=== PATIENT | male | born 1960 | race American Indian/Alaskan Native ===

== ENCOUNTER 2016-08-22 11:10 | Emergency (ER) | payer MEDICAID, OTHER ==
[2016-08-22 11:15] VITALS: BP 121/87; PULSE 89; RESP 20; TEMP 98; O2SAT 98; BMI 29.7
--- NOTE | 2016-08-22 11:51 | C.PDOC ---
History Of Present Illness 55 y/o male with Hx of HTN and Headaches presents to ED with complaints of sharp and shooting pain on top of his head. Patient reports pain to be intermittent but constant in between hours. At ED patient is asymptomatic but states pain comes and goes. Patient denies fever, chills, vision changes, dizziness, n/v/d or any other complaints at this time. Time Seen by Provider: 08/22/16 11:27 Chief Complaint (Nursing): Headache History Per: Patient History/Exam Limitations: no limitations Onset/Duration Of Symptoms: Hrs Current Symptoms Are (Timing): Still Present Quality: Sharp Associated Symptoms: denies: Blurred Vision Past Medical History Reviewed: Historical Data, Nursing Documentation, Vital Signs Vital Signs: Last Vital Signs Temp 98.0 F 08/22/16 11:15 Pulse 89 08/22/16 11:15 Resp 20 08/22/16 11:15 BP 121/87 08/22/16 11:15 Pulse Ox 98 08/22/16 11:55 - Medical History PMH: HTN, Hypercholesterolemia Family History: States: No Known Family Hx - Social History Hx Alcohol Use: No Hx Substance Use: No - Immunization History Hx Tetanus Toxoid Vaccination: No Hx Influenza Vaccination: No Hx Pneumococcal Vaccination: No Review Of Systems Except As Marked, All Systems Reviewed And Found Negative. Constitutional: Negative for: Fever, Chills Eyes: Negative for: Vision Change Gastrointestinal: Negative for: Nausea, Vomiting, Diarrhea Neurological: Positive for: Headache. Negative for: Weakness, Dizziness Physical Exam - Physical Exam Appears: Non-toxic, No Acute Distress Skin: Normal Color, Warm Head: Atraumatic, Normacephalic Eye(s): bilateral: Normal Inspection, PERRL Oral Mucosa: Moist Neck: Normal ROM Cardiovascular: Rhythm Regular, No Murmur Respiratory: Normal Breath Sounds, No Rales, No Rhonchi, No Wheezing Gastrointestinal/Abdominal: Soft, No Tenderness, No Guarding, No Rebound Extremity: Normal ROM, Capillary Refill (<2 seconds) Neurological/Psych: Oriented x3, Normal Speech, Normal Cognition, Normal Motor, Normal Sensation ED Course And Treatment O2 Sat by Pulse Oximetry: 98 (RA) Pulse Ox Interpretation: Normal - CT Scan/US No standard instances Other Rad Studies (CT/US): Read By Radiologist, Radiology Report Reviewed CT/US Interpretation: FINDINGS: HEMORRHAGE: No acute parenchymal, subarachnoid or extra-axial the EAC rectus Dr. ziegler hemorrhage. BRAIN: No evidence of obvious parenchymal nor extra-axial mass or collection. Mild central volume loss. VENTRICLES: No obstructive hydrocephalus. CALVARIUM: There are no acute calvarial fractures. . PARANASAL SINUSES: Unremarkable as visualized. No significant inflammatory changes. MASTOID AIR CELLS: Unremarkable as visualized. No inflammatory changes. OTHER FINDINGS: None. IMPRESSION: No acute intracranial hemorrhage. Mild central volume loss. Progress Note: TREATED WITH MOTRIN 650 MG po. On re-evaluation feeling better, neuro intact, ambulating with steady gait Reassessment Condition: Improved Medical Decision Making Medical Decision Making: Plan: * CT head * Tylenol Disposition Counseled Patient/Family Regarding: Studies Performed, Diagnosis, Need For Followup, Rx Given - Disposition Disposition: HOME/ ROUTINE Disposition Time: 13:00 Condition: IMPROVED Prescriptions: Naproxen [Naprosyn] 1 tab PO BID PRN #25 tab PRN Reason: Pain Instructions: Acute Headache (ED) - POA Present On Arrival: None - Clinical Impression Clinical Impression: Headache - Scribe Statement The provider has reviewed the documentation as recorded by the Jeronimo Garcia All medical record entries made by the Jeronimo were at my direction and personally dictated by me. I have reviewed the chart and agree that the record accurately reflects my personal performance of the history, physical exam, medical decision making, and the department course for this patient. I have also personally directed, reviewed, and agree with the discharge instructions and disposition.
--- NOTE | 2016-08-22 12:33 | CT ---
PROCEDURE: CT HEAD WITHOUT CONTRAST. HISTORY: fall COMPARISON: None available. TECHNIQUE: Axial computed tomography images were obtained through the head/brain without intravenous contrast. Radiation dose: Total exam DLP = 1193.58 mGy-cm. This CT exam was performed using one or more of the following dose reduction techniques: Automated exposure control, adjustment of the mA and/or kV according to patient size, and/or use of iterative reconstruction technique. FINDINGS: HEMORRHAGE: No acute parenchymal, subarachnoid or extra-axial the EAC rectus Dr. el hemorrhage. BRAIN: No evidence of obvious parenchymal nor extra-axial mass or collection. Mild central volume loss. VENTRICLES: No obstructive hydrocephalus. CALVARIUM: There are no acute calvarial fractures. . PARANASAL SINUSES: Unremarkable as visualized. No significant inflammatory changes. MASTOID AIR CELLS: Unremarkable as visualized. No inflammatory changes. OTHER FINDINGS: None. IMPRESSION: No acute intracranial hemorrhage. Mild central volume loss.
== END 2016-08-22 13:24 | disposition home or self-care (01) ==
LOC: C.ER 11:10
DX: R51 Headache (principal)

== ENCOUNTER 2016-10-11 10:12 | Emergency (ER) | payer OTHER ==
[2016-10-11 10:12] VITALS: BMI 29.7
[2016-10-11] MEDS ORDERED: Sodium Chloride 0.9% 500 ML IV ONE (10:28)
--- NOTE | 2016-10-11 10:30 | C.PDOC ---
History Of Present Illness 55 yr old male presents to the ER with complaints of LLQ pain for the past 1 week. Patient reports history of similar symptoms, states he was told by his PMD it was a bacterial infection and was put on antibiotics. Patient states he is concerned it might be the same. Patient also reports of a colonoscopy 2 years ago with normal results. Patient denies fever, nausea, vomiting, diarrhea , constipation, dysuria or hematuria. Time Seen by Provider: 10/11/16 10:19 Chief Complaint (Nursing): Abdominal Pain History Per: Patient History/Exam Limitations: no limitations Onset/Duration Of Symptoms: Days (1 week) Past Medical History Reviewed: Historical Data, Nursing Documentation, Vital Signs Vital Signs: Last Vital Signs Temp 97.7 F 10/11/16 13:36 Pulse 80 10/11/16 13:36 Resp 18 10/11/16 13:36 BP 130/90 10/11/16 13:36 Pulse Ox 97 10/11/16 13:55 - Medical History PMH: HTN, Hypercholesterolemia Family History: States: No Known Family Hx - Social History Hx Alcohol Use: Yes Hx Substance Use: No - Immunization History Hx Tetanus Toxoid Vaccination: No Hx Influenza Vaccination: No Hx Pneumococcal Vaccination: No Review Of Systems Except As Marked, All Systems Reviewed And Found Negative. Constitutional: Negative for: Fever Gastrointestinal: Positive for: Abdominal Pain (LLQ pain ). Negative for: Nausea, Vomiting, Diarrhea, Constipation Genitourinary: Negative for: Dysuria, Hematuria Physical Exam - Physical Exam Appears: Non-toxic, No Acute Distress Skin: Warm, Dry, No Rash Head: Atraumatic, Normacephalic Oral Mucosa: Moist Chest: Symmetrical, No Tenderness Cardiovascular: Rhythm Regular, No Murmur Respiratory: Normal Breath Sounds, No Rales, No Rhonchi, No Wheezing Gastrointestinal/Abdominal: Normal Exam, Soft, No Tenderness, No Guarding, No Rebound Extremity: Normal ROM, No Swelling Neurological/Psych: Oriented x3, Normal Speech, Normal Motor ED Course And Treatment - Laboratory Results Result Diagrams: 10/11/16 10:42 10/11/16 10:42 O2 Sat by Pulse Oximetry: 97 (RA ) Pulse Ox Interpretation: Normal - CT Scan/US CT- Abd & Pelvis Other Rad Studies (CT/US): Read By Radiologist, Radiology Report Reviewed CT/US Interpretation: PROCEDURE: CT Abdomen and Pelvis with contrast. HISTORY : LLQ pain. COMPARISON: None. TECHNIQUE: Contrast dose: Visipaque 320, 100 cc. Radiation dose: Total exam DLP = 536 mGy-cm. This CT exam was performed using one or more of the following dose reduction techniques: Automated exposure control, adjustment of the mA and/or kV according to patient size, and/ or use of iterative reconstruction technique. FINDINGS: LOWER THORAX: Unremarkable. LIVER: Mild diffuse fatty infiltration liver is identified with the liver otherwise unremarkable. No definite intrahepatic biliary dilatation is demonstrated. GALLBLADDER AND BILE DUCTS: Unremarkable. PANCREAS: Unremarkable. No gross lesion or ductal dilatation. SPLEEN: Unremarkable. ADRENALS: Unremarkable. No mass. KIDNEYS AND URETERS: 1.1 cm cyst seen at the midpole right kidney posteriorly with bilateral kidneys otherwise unremarkable appearing. VASCULATURE: Unremarkable. No aortic aneurysm. BOWEL : Moderate sigmoid diverticular changes are identified which appear nonacute. No reactive pericolic changes are identified and there is no definite abscess or definitive free intraperitoneal gas evident at this time. [id number]-[id number] fecal loading is seen in various large-bowel segments. No obstruction. No gross mural thickening. APPENDIX: The appendix is retroperitoneal but otherwise unremarkable. No acute inflammatory changes seen related. PERITONEUM: Unremarkable. No free fluid. No free air. LYMPH NODES: Unremarkable. No enlarged lymph nodes. BLADDER: Unremarkable. REPRODUCTIVE: Enlarged prostate gland is identified. BONES: Minimal grade 1 spondylolisthesis L4-5. OTHER FINDINGS: A tiny umbilical hernia is identified containing only. IMPRESSION: 1. Moderate sigmoid diverticulosis identified without diverticulitis at this time. 2. Mild diffuse fatty infiltration liver. 3. Small cyst right kidney. 4. No obstructive uropathy bilaterally. Medical Decision Making Medical Decision Making: PLAN: * CT - Abd & Pelvis * CBC * CMP * Urinalysis * Toradol IVP * Sodium Chloride IV Patient is tolerating po, afebrile and well appearing. He reports that he wants to go home and will return with any worsening symptoms. Disposition - Disposition Disposition: HOME/ ROUTINE Disposition Time: 13:56 Condition: GOOD Additional Instructions: Return to ED if condition worsens. Follow-up with PMD within 2 days. Take full course of antibiotics. Prescriptions: Ciprofloxacin HCl [Cipro] 500 mg PO BID #20 tablet Metronidazole [Flagyl] 500 mg PO TID #30 tablet Instructions: Diverticulitis (ED) Forms: [employer] (Armenian) - Clinical Impression Clinical Impression: Diverticulitis - Scribe Statement The provider has reviewed the documentation as recorded by the Siennaibrachelle Ac Provider Attestation: All medical record entries made by the Siennaibrachelle were at my direction and personally dictated by me. I have reviewed the chart and agree that the record accurately reflects my personal performance of the history, physical exam, medical decision making, and the department course for this patient. I have also personally directed, reviewed, and agree with the discharge instructions and disposition.
[2016-10-11] MEDS ORDERED: Sodium Chloride 0.9% 1,000 ML ONE (10:39)
[2016-10-11 10:57] LABS: URINE BILIRUBIN NEGATIVE (NEGATIVE); URINE BLOOD NEGATIVE (NEGATIVE); URINE COLOR Straw (YELLOW); URINE GLUCOSE (UA) NORMAL (Normal); URINE KETONE NEGATIVE (NEGATIVE); URINE LEUKOCYTE ESTERASE NEG Leu/uL (Negative); URINE PROTEIN NEGATIVE (NEGATIVE); URINE UROBILINOGEN NORMAL mg/dL (0.2-1.0)
[2016-10-11 11:01] LABS: CHLORIDE 97 mmol/L (98-107); SODIUM 138 mmol/L (132-148)
[2016-10-11 11:02] LABS: BASO # 0.1 K/uL (0.0-0.2); BASO % 1.2 % (0.0-2.0); EOS # 0.1 K/uL (0.0-0.7); EOS % 1.1 % (0.0-4.0); HEMATOCRIT 44.7 % (35.0-51.0); LYMPH # 2.4 K/uL (1.0-4.3); LYMPH % 49.9 % (20.0-40.0); MEAN CELL VOLUME 90.1 fL (80.0-94.0); MEAN CORPUSCULAR HEMOGLOBIN 29.6 pg (27.0-31.0); MEAN CORPUSCULAR HGB CONC 32.8 g/dL (33.0-37.0); MEAN PLATELET VOLUME 8.9 fL (7.2-11.7); MONO # 0.5 K/uL (0.0-0.8); MONO % 11.4 % (0.0-10.0); NRBC % 0.2 % (0.0-2.0); RED CELL DISTRIBUTION WIDTH 13.5 % (11.5-14.5); WHITE BLOOD COUNT 4.7 K/uL (4.8-10.8)
[2016-10-11 11:04] LABS: ALB/GLOB RATIO 1.2 (1.0-2.1); ALKALINE PHOSPHATASE 36 U/L (38-126); ALT/SGPT 45 U/L (21-72); AST/SGOT 45 U/L (17-59); BILIRUBIN,TOTAL 1.5 mg/dL (0.2-1.3); BLOOD UREA NITROGEN 10 mg/dL (9-20); CARBON DIOXIDE 28 mmol/L (22-30); GFR AFRICAN-AMERICAN > 60; GLUCOSE,RANDOM 80 mg/dL (75-110); TOTAL PROTEIN 8.3 g/dL (6.3-8.3)
[2016-10-11 11:05] LABS: CALCIUM 9.8 mg/dl (8.6-10.4)
[2016-10-11 11:49] VITALS: RESP 18
[2016-10-11] MEDS ORDERED: Iohexol 350mg/ml 100 ML ONE (12:02)
[2016-10-11 12:32] VITALS: O2SAT 97
--- NOTE | 2016-10-11 12:55 | CT ---
PROCEDURE: CT Abdomen and Pelvis with contrast HISTORY: LLQ pain COMPARISON: None. TECHNIQUE: Contrast dose: Visipaque 320, 100 cc Radiation dose: Total exam DLP = 536 mGy-cm. This CT exam was performed using one or more of the following dose reduction techniques: Automated exposure control, adjustment of the mA and/or kV according to patient size, and/or use of iterative reconstruction technique. FINDINGS: LOWER THORAX: Unremarkable. LIVER: Mild diffuse fatty infiltration liver is identified with the liver otherwise unremarkable. No definite intrahepatic biliary dilatation is demonstrated. GALLBLADDER AND BILE DUCTS: Unremarkable. PANCREAS: Unremarkable. No gross lesion or ductal dilatation. SPLEEN: Unremarkable. ADRENALS: Unremarkable. No mass. KIDNEYS AND URETERS: 1.1 cm cyst seen at the midpole right kidney posteriorly with bilateral kidneys otherwise unremarkable appearing. VASCULATURE: Unremarkable. No aortic aneurysm. BOWEL: Moderate sigmoid diverticular changes are identified which appear nonacute. No reactive pericolic changes are identified and there is no definite abscess or definitive free intraperitoneal gas evident at this time. Irue-iz-evqhhlgv fecal loading is seen in various large-bowel segments. No obstruction. No gross mural thickening. APPENDIX: The appendix is retroperitoneal but otherwise unremarkable. No acute inflammatory changes seen related. PERITONEUM: Unremarkable. No free fluid. No free air. LYMPH NODES: Unremarkable. No enlarged lymph nodes. BLADDER: Unremarkable. REPRODUCTIVE: Enlarged prostate gland is identified BONES: Minimal grade 1 spondylolisthesis L4-5. OTHER FINDINGS: A tiny umbilical hernia is identified containing only. IMPRESSION: 1. Moderate sigmoid diverticulosis identified without diverticulitis at this time. 2. Mild diffuse fatty infiltration liver. 3. Small cyst right kidney. 4. No obstructive uropathy bilaterally.
[2016-10-11 13:36] VITALS: BP 130/90; PULSE 80; TEMP 97.7
== END 2016-10-11 13:35 | disposition home or self-care (01) ==
LOC: C.ER 10:12
DX: K57.32 Diverticulitis of large intestine without perforation or abscess without bleeding (principal)
CPT/HCPCS: 74177; 80053; 81001; 83690; 85025; 96361; 96374; 99284; J1885; J7040; Q9967

== ENCOUNTER 2016-11-10 11:28 | Emergency (ER) | payer OTHER ==
[2016-11-10 11:29] VITALS: BMI 29.7
[2016-11-10 11:44] VITALS: TEMP 97.7
[2016-11-10 12:27] LABS: RBC URINE 1 /hpf (0-3); URINE BILIRUBIN NEGATIVE (NEGATIVE); URINE BLOOD NEGATIVE (NEGATIVE); URINE COLOR Yellow (YELLOW); URINE GLUCOSE (UA) NORMAL (Normal); URINE KETONE NEGATIVE (NEGATIVE); URINE LEUKOCYTE ESTERASE NEG Leu/uL (Negative); URINE PROTEIN NEGATIVE (NEGATIVE); URINE UROBILINOGEN NORMAL mg/dL (0.2-1.0); WBC URINE 1 /hpf (0-5)
--- NOTE | 2016-11-10 12:34 | C.PDOC ---
History Of Present Illness 56 year old male, with history of intermittent lower back pain, presents to the ED for evaluation of left-sided lower back pain which has been gradually worsening for the past 5 days. Patient describes his pain as constant, aching, severe in nature and notes it radiates to his left thigh. He states the pain is worse with movement and standing. Patient states his symptoms began after he received a steroid injection in his lower back. He denies recent trauma/injury, fever, chills, abdominal pain, dysuria, hematuria, urinary frequency, urinary/ bowel incontinence, or saddle anesthesia. Ambulate to ED for evaluation, appears in pain. Time Seen by Provider: 11/10/16 11:54 Chief Complaint (Nursing): Back Pain History Per: Patient History/Exam Limitations: no limitations Onset/Duration Of Symptoms: Days (5), Gradual Current Symptoms Are (Timing): Still Present Quality Of Discomfort: Aching, "Pain" Severity: Severe Previous Symptoms: Back Pain Associated Symptoms: denies: Incontinence, New Weakness, New Numbness Exacerbating Factor(s): Movement, Standing Additional History Per: Patient Past Medical History Reviewed: Historical Data, Nursing Documentation, Vital Signs Vital Signs: Last Vital Signs Temp 97.7 F 11/10/16 11:42 Pulse 70 11/10/16 13:02 Resp 16 11/10/16 13:02 BP 111/68 11/10/16 13:02 Pulse Ox 98 11/10/16 13:02 - Medical History PMH: HTN, Hypercholesterolemia Surgical History: No Surg Hx Family History: States: Unknown Family Hx - Social History Hx Alcohol Use: Yes Hx Substance Use: No - Immunization History Hx Tetanus Toxoid Vaccination: No Hx Influenza Vaccination: No Hx Pneumococcal Vaccination: No Review Of Systems Constitutional: Negative for: Fever, Chills Gastrointestinal: Negative for: Abdominal Pain Genitourinary: Negative for: Dysuria, Frequency, Incontinence, Hematuria Musculoskeletal: Positive for: Back Pain (left-sided, lower), Other (left thigh pain ) Neurological: Negative for: Weakness, Numbness Physical Exam - Physical Exam Appears: Non-toxic, No Acute Distress Skin: Normal Color, Warm, Dry, No Rash Eye(s): bilateral: PERRL Nose: No Flaring Oral Mucosa: Moist Throat: No Erythema Neck: Supple Gastrointestinal/Abdominal: Soft, No Tenderness, No Guarding, No Rebound Back: Muscle Spasm (moderate), Paraspinal Tenderness (left-sided, lumbar ), Straight Leg Raising (right lower extremity: +50 degrees; left lower extremity: +30 degrees) Extremity: Normal ROM, No Tenderness, No Calf Tenderness, Capillary Refill ( less than 2 seconds ), No Swelling Neurological/Psych: Oriented x3, Normal Speech, Normal Cognition, Normal Motor, Normal Sensation, Normal Reflexes Gait: Steady ED Course And Treatment O2 Sat by Pulse Oximetry: 100 (on RA) Pulse Ox Interpretation: Normal Progress Note: UA ordered and reviewed. Toradol IM, Ultram PO, and Valium PO administered. On re-evaluation, pt reports mild improvement in lower back pain. AFebrile, hemodynamicaly stable. Non-toxic. AMbulatory in ED with stable gait. ENT: no acute findings. LUngs: CTA B/L, BS equal B/L. ABd: benign, (-) guarding, (-) rebound. Back: (-) CVA tenderness. Neuorlogicaly intact. UA- normal study. Pt has clinical findings c/w lumbar radiculopathy, left. Pt advised on coruse of ds. ref. to F/u with PMD and PM in 2-3 days for re-eavl. return if any new changes. Disposition Counseled Patient/Family Regarding: Studies Performed, Diagnosis, Need For Followup, Rx Given - Disposition Referrals: Tom Romano DO [Staff Provider] - Disposition: HOME/ ROUTINE Disposition Time: 12:44 Condition: STABLE Additional Instructions: Light duty to lower back, avpoid prolong sitting, heavy lifting, bending, etc Take pain medication as need for pain Follow up with PMD, Pain Management in 2-3 days for re-evaluation. Return to ED if any worsening or new changes-incontinence, weakness to B/L legs , saddle anesthesia Prescriptions: Ibuprofen [Motrin Tab] 600 mg PO Q6 #20 tab Methocarbamol [Robaxin] 500 mg PO TID #14 tab traMADol [Ultram] 50 mg PO TID #7 tab Instructions: Lumbar Radiculopathy (ED) Forms: [employer] (Maori) - Clinical Impression Clinical Impression: Lumbar radiculopathy - PA / DESKTOP SUPPORT SPECIALIST / Resident Statement / has reviewed & agrees with the documentation as recorded. - Scribe Statement The provider has reviewed the documentation as recorded by the Scribe (Joann Griffith) All medical record entries made by the Scribe were at my direction and personally dictated by me. I have reviewed the chart and agree that the record accurately reflects my personal performance of the history, physical exam, medical decision making, and the department course for this patient. I have also personally directed, reviewed, and agree with the discharge instructions and disposition.
[2016-11-10 13:03] VITALS: BP 111/68; PULSE 70; RESP 16
[2016-11-11 15:08] VITALS: O2SAT 100
== END 2016-11-10 13:02 | disposition home or self-care (01) ==
LOC: C.ER 11:28
DX: M54.16 Radiculopathy, lumbar region (principal)
CPT/HCPCS: 81001; 96372; 99283; J1885

== ENCOUNTER 2017-06-16 09:42 | Emergency (ER) | payer OTHER ==
[2017-06-16 09:43] VITALS: BMI 29.7
[2017-06-16 09:54] VITALS: TEMP 97.7
[2017-06-16 10:21] VITALS: RESP 16; O2SAT 100
[2017-06-16 10:39] LABS: EOS % 0.8 % (0.0-4.0); HEMOGLOBIN 13.6 g/dL (12.0-18.0); LYMPH # 1.5 K/uL (1.0-4.3); LYMPH % 33.5 % (20.0-40.0); MEAN CELL VOLUME 89.4 fL (80.0-94.0); MEAN CORPUSCULAR HEMOGLOBIN 30.9 pg (27.0-31.0); MEAN CORPUSCULAR HGB CONC 34.5 g/dL (33.0-37.0); MEAN PLATELET VOLUME 8.5 fL (7.2-11.7); MONO # 0.5 K/uL (0.0-0.8); MONO % 10.3 % (0.0-10.0); NEUT # 2.4 K/uL (1.8-7.0); NEUT % 54.4 % (50.0-75.0); RBC 4.41 Mil/uL (4.40-5.90); RED CELL DISTRIBUTION WIDTH 13.3 % (11.5-14.5); WHITE BLOOD COUNT 4.4 K/uL (4.8-10.8)
[2017-06-16 10:47] LABS: INR 1.1; PROTHROMBIN TIME 12.1 SECONDS (9.7-12.2)
[2017-06-16 10:49] LABS: URINE BILIRUBIN NEGATIVE (NEGATIVE); URINE BLOOD NEGATIVE (NEGATIVE); URINE CLARITY Clear (Clear); URINE COLOR Straw (YELLOW); URINE GLUCOSE (UA) NORMAL (Normal); URINE LEUKOCYTE ESTERASE NEG Leu/uL (Negative); URINE PROTEIN NEGATIVE (NEGATIVE); URINE UROBILINOGEN NORMAL mg/dL (0.2-1.0)
[2017-06-16 10:53] LABS: ALB/GLOB RATIO 1.1 (1.0-2.1); ALBUMIN 4.3 g/dL (3.5-5.0); ALT/SGPT 39 U/L (21-72); AST/SGOT 47 U/L (17-59); BLOOD UREA NITROGEN 11 mg/dL (9-20); CALCIUM 9.3 mg/dl (8.6-10.4); GFR AFRICAN-AMERICAN > 60; GFR NON-AFRICAN AMERICAN > 60; HDL CHOLESTEROL 87 mg/dL (30-70)
--- NOTE | 2017-06-16 10:58 | C.PDOC ---
History Of Present Illness 56 year old male presents to ED for evaluation of episode of right sided chest pain described as burning sensation and mid back pain 5 days ago. Notes that he had similar episodes which resolved after taking Naproxen. He reports he has been experiencing these episodes after eating and drinking. Otherwise, denies nausea, vomiting, shortness of breath, fever, or any other symptoms at this time. Time Seen by Provider: 06/16/17 10:05 Chief Complaint (Nursing): High Blood Pressure History Per: Patient History/Exam Limitations: no limitations Onset/Duration Of Symptoms: Days Current Symptoms Are (Timing): Still Present Associated Symptoms: Chest Pain. denies: Dyspnea, Dizziness Quality Of Symptoms: Asymptomatic Recent travel outside of the [place]: No Additional History Per: Patient Past Medical History Reviewed: Historical Data, Nursing Documentation, Vital Signs Vital Signs: Last Vital Signs Temp 97.7 F 06/16/17 09:50 Pulse 72 06/16/17 11:38 Resp 16 06/16/17 11:38 BP 101/76 06/16/17 11:38 Pulse Ox 100 06/16/17 11:45 - Medical History PMH: HTN, Hypercholesterolemia Family History: States: Unknown Family Hx - Social History Hx Alcohol Use: Yes Hx Substance Use: No - Immunization History Hx Tetanus Toxoid Vaccination: No Hx Influenza Vaccination: No Hx Pneumococcal Vaccination: No Review Of Systems Except As Marked, All Systems Reviewed And Found Negative. Constitutional: Negative for: Fever, Chills Cardiovascular: Positive for: Chest Pain Respiratory: Negative for: Cough, Shortness of Breath Gastrointestinal: Negative for: Nausea, Vomiting, Abdominal Pain Musculoskeletal: Positive for: Back Pain. Negative for: Neck Pain Neurological: Negative for: Headache, Dizziness Physical Exam - Physical Exam Appears: Non-toxic, No Acute Distress Skin: Normal Color, Warm, Dry Head: Atraumatic, Normacephalic Eye(s): bilateral: Normal Inspection, EOMI Oral Mucosa: Moist Neck: Normal ROM, Supple Chest: Symmetrical, No Tenderness Cardiovascular: Rhythm Regular, No Murmur Respiratory: Normal Breath Sounds, No Rales, No Rhonchi, No Wheezing Gastrointestinal/Abdominal: Soft, No Tenderness Back: No Vertebral Tenderness, No Paraspinal Tenderness Extremity: Normal ROM Neurological/Psych: Oriented x3, Normal Speech ED Course And Treatment - Laboratory Results Result Diagrams: 06/16/17 10:33 06/16/17 10:33 Lab Interpretation: No Acute Changes ECG: Interpreted By Me, Viewed By Me ECG Rhythm: Sinus Rhythm ECG Interpretation: No Acute Changes Rate From EC (bpm) O2 Sat by Pulse Oximetry: 100 (RA) Pulse Ox Interpretation: Normal - Radiology CXR: Interpreted by Me, Viewed By Me CXR Interpretation: Yes: No Acute Disease Medical Decision Making Medical Decision Making: Plan: * Blood work * Urinalysis * EKG * CXR Progress: EKG is normal sinus with no ischemic changes All labs reviewed including cardiac markers which were negative CXR shows no active cardiopulmonary disease Reassess: Patient re-examined and was sitting comfortably in no distress. I explained all results to the patient. He remained afebrile and denied any chest pain or SOB. Symptoms are likely related to GERD and non-cardiac based on negative findings. Patient is stable for discharge and advised to follow up with PMD or return to ED Disposition Counseled Patient/Family Regarding: Diagnosis, Need For Followup - Disposition Referrals: Tom Romano DO [Staff Provider] - Disposition: HOME/ ROUTINE Disposition Time: 11:25 Condition: STABLE Additional Instructions: Follow up with your primary medical doctor or clinic in 2-5 days for further evaluation. Take Aspirin for any pain. Return to the emergency department at any time if symptoms persist or worsen. Instructions: Chest Pain (DC) Forms: [facility] (Upper Sorbian) - POA Present On Arrival: None - Clinical Impression Clinical Impression: Burning chest pain - PA / SOCIAL WORKER PSYCHIATRIC / Resident Statement MD/DO has reviewed & agrees with the documentation as recorded. - Scribe Statement The provider has reviewed the documentation as recorded by the Scribe Denise Griffith All medical record entries made by the Scribe were at my direction and personally dictated by me. I have reviewed the chart and agree that the record accurately reflects my personal performance of the history, physical exam, medical decision making, and the department course for this patient. I have also personally directed, reviewed, and agree with the discharge instructions and disposition.
--- NOTE | 2017-06-16 10:58 | RAD ---
HISTORY: SOB COMPARISON: No prior. TECHNIQUE: Chest PA and lateral FINDINGS: LUNGS: No active pulmonary disease. PLEURA: No significant pleural effusion identified. No pneumothorax apparent. CARDIOVASCULAR: Normal. OSSEOUS STRUCTURES: Minor multilevel degenerative spondylosis of the thoracic spine. VISUALIZED UPPER ABDOMEN: Normal. OTHER FINDINGS: None. IMPRESSION: No active disease.
[2017-06-16 11:03] LABS: B-TYPE NATRIURETIC PEPTIDE 14.2 pg/mL (0-900)
[2017-06-16 11:04] LABS: LDL CHOLESTEROL 83 mg/dL (0-129)
[2017-06-16 11:39] VITALS: BP 101/76; PULSE 72
--- NOTE | 2017-06-17 16:36 | CARD ---
APPROVED REPORT EKG Measurement Heart [id number] <Conclusion> Normal sinus rhythm Minimal voltage criteria for LVH, may be normal variant Borderline ECG
== END 2017-06-16 11:39 | disposition home or self-care (01) ==
LOC: C.ER 09:42
DX: R07.9 Chest pain, unspecified (principal); E78.00 Pure hypercholesterolemia, unspecified; I10 Essential (primary) hypertension

== ENCOUNTER 2017-08-18 08:36 | Emergency (ER) | payer OTHER ==
[2017-08-18 08:36] VITALS: BMI 29.7
[2017-08-18 09:21] LABS: URINE BACTERIA RARE (<OCC); URINE BILIRUBIN NEGATIVE (NEGATIVE); URINE BLOOD NEGATIVE (NEGATIVE); URINE CLARITY Clear (Clear); URINE COLOR Straw (YELLOW); URINE GLUCOSE (UA) NORMAL (Normal); URINE LEUKOCYTE ESTERASE NEG Leu/uL (Negative); URINE PROTEIN NEGATIVE (NEGATIVE); URINE UROBILINOGEN NORMAL mg/dL (0.2-1.0)
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
--- NOTE | 2017-08-18 10:15 | RAD ---
HISTORY: Low back and abdominal pain. COMPARISON: No prior. FINDINGS: BOWEL: No evidence of acute mechanical bowel obstruction. No evidence of gross free intraperitoneal air seen on this limited supine study. BONES: Mild multilevel degenerative spondylosis of the lumbar and to a lesser degree lower thoracic spine. OTHER FINDINGS: Small calcifications in the right inferior true pelvis likely represent calcified pelvic phleboliths however the possibility of small calcified urinary bladder would history revealed calculus not excluded. IMPRESSION: No evidence of acute mechanical bowel obstruction. . Small calcifications right inferior true pelvis likely represent calcified pelvic phleboliths.
[2017-08-18 10:22] VITALS: BP 142/70; PULSE 81; RESP 16; TEMP 98.5
[2017-08-18 15:32] VITALS: O2SAT 98
== END 2017-08-18 10:20 | disposition home or self-care (01) ==
LOC: C.ER 08:36
DX: M54.5 Low back pain (principal)